=== PATIENT | male | born 1985 | race Caucasian/White ===

== ENCOUNTER 2017-08-05 06:38 | Inpatient (IN) | payer OTHER ==
[~2017-08-05] VITALS: Ht 188 cm; Wt 89.0 kg
[2017-08-05] VITALS (7 sets, daily range): BP systolic 107–126; BP diastolic 59–76
--- NOTE | 2017-08-05 06:50 | NUR ---
TO BED 6 A 32 YO MALE PT BIB FAMILY FROM HOME, PT C/O RLQ ABD PAIN X 2 DAYS. PATIENT IS AAOX4, VSS. NAD NOTED. BREATHING EVEN AND UNLABORED. SKIN WARM AND DRY. COMFORT MEASURES RENDERED.
[2017-08-05] MEDS ORDERED: ONDANSETRON HCL/PF 4 MG/2 ML VIAL ONE (07:10)
[2017-08-05] MEDS ORDERED: KETOROLAC TROMETHAMINE INJ 30 MG/ML VIAL ONE (07:10)
--- NOTE | 2017-08-05 07:10 | NUR ---
STARTED A SALINE LOCK ON THE LAC G18, BLOOD DRAWN AND SENT TO LAB.
--- NOTE | 2017-08-05 07:14 | NUR ---
MEDICATED PATIENT ORDERED BY DR KEATING.
[2017-08-05 07:21] LABS: BASOPHILS % (AUTO) 0.4 % (0.0-2.0); EOSINOPHILS # (AUTO) 0.1 /CMM (0.0-0.7); EOSINOPHILS % (AUTO) 1.1 % (0.0-6.0); HEMATOCRIT 42 % (39-51); HEMOGLOBIN 14.8 g/dL (13.5-17.5); LYMPHOCYTES # (AUTO) 1.4 /CMM (0.8-4.8); LYMPHOCYTES % (AUTO) 17.9 % (20.0-44.0); MEAN CORPUSCULAR HEMOGLOBIN 30 PG (26.0-33.0); MEAN CORPUSCULAR HGB CONC 35 g/dl (31.0-36.0); MEAN CORPUSCULAR VOLUME 87 fL (80-96); MONOCYTES # (AUTO) 0.5 /CMM (0.1-1.30); MONOCYTES % (AUTO) 6.6 % (2.0-12.0); NEUTROPHILS # (AUTO) 5.7 /CMM (1.8-8.9); PLATELET COUNT (AUTO) 150 /CMM (150-450); RDW COEFFICIENT OF VARIATION 12.4 (11.5-15.0); RED BLOOD CELL COUNT(AUTO) 4.86 MIL/uL (4.5-6.0); WHITE BLOOD COUNT (AUTO) 7.7 K/uL (4.3-11.0)
[2017-08-05] MEDS ORDERED: KETOROLAC TROMETHAMINE INJ 30 MG/ML VIAL IV ONE (07:30)
[2017-08-05] MEDS ORDERED: ONDANSETRON HCL/PF 4 MG/2 ML VIAL IVP ONE (07:30)
[2017-08-05] MEDS ORDERED: IV NS 0.9% 1,000 ML BAG IV ONE (07:30)
[2017-08-05 07:33] LABS: CREATININE 0.9 mg/dL (0.6-1.3); POTASSIUM 3.7 mmol/L (3.5-5.1)
[2017-08-05 07:36] LABS: APPEARANCE,URINE CLEAR (CLEAR); BILIRUBIN,URINE NEGATIVE (NEGATIVE); BLOOD, URINE NEGATIVE Ery/uL (NEGATIVE); COLOR,URINE YELLOW (YELLOW); KETONES,URINE NEGATIVE (NEGATIVE); LEUKOCYTE ESTERASE ,URINE NEGATIVE (NEGATIVE); NITRITE, URINE NEGATIVE (NEGATIVE); PROTEIN,URINE NEGATIVE (NEGATIVE); UGLUCOSE NEGATIVE (NEGATIVE); UROBILINOGEN,URINE 0.2 EU/dL (0.2)
[2017-08-05 07:42] LABS: ALBUMIN 4.2 g/dL (3.4-5.0); BILIRUBIN,DIRECT 0.2 mg/dL (0.0-0.2); BILIRUBIN,TOTAL 0.9 mg/dL (0.2-1.0); TOTAL PROTEIN, SERUM 7.1 g/dL (6.4-8.2)
--- NOTE | 2017-08-05 09:21 | NUR ---
[facility] PAGED [phone] DR COPELAND N DIELECTRIC MACHINE OPERATOR
--- NOTE | 2017-08-05 10:23 | NUR ---
MOTOR VEHICLE DISPATCHER RECEIVED PT. BY WHEEL CHAIR. PT. IS A&OX4. PT. IS IN MEDICALLY STABLE CONDITION. REPORT WAS GIVEN VIA PHONE BY LINA FROM EMERGENCY ROOM.
[2017-08-05] MEDS ORDERED: IV D5/0.45 NACL 1,000 ML IV PRN (10:52)
[2017-08-05] MEDS ORDERED: ZOLPIDEM TARTRATE 5 MG TABLET PO PRN (11:00)
[2017-08-05] MEDS ORDERED: MAG HYDROX/AL HYDROX/SIMETH 30 ML UDC PO PRN (11:00)
[2017-08-05] MEDS ORDERED: ACETAMINOPHEN 325 MG TABLET PO PRN (11:00)
[2017-08-05] MEDS ORDERED: Z GUARD REMEDY 2 OZ OINT TP PRN (11:00)
[2017-08-05] MEDS ORDERED: HYDROMORPHONE INJ 0.5 MG/0.5 ML SYRINGE IV PRN ×2 (11:30→15:30)
[2017-08-05] MEDS: ONDANSETRON HCL/PF 4 MG/2 ML VIAL IVP PRN (12:51)
--- NOTE | 2017-08-05 13:09 | NUR ---
RN NOTES PT. LEFT ROOM AND WAS TAKEN TO SURGERY. CHART WAS TAKEN WITH PATIENT.
[2017-08-05] MEDS ORDERED: BUPIVACAINE 0.25% 75 MG/30 ML VIAL ONE (13:23)
[2017-08-05] MEDS ORDERED: ATROPINE SULFATE 1 MG/10 ML DISP.SYRIN ONE (14:40)
[2017-08-05] MEDS ORDERED: LIDOCAINE 1%-EPI 1:100,000 20 ML VIAL ONE (14:48)
[2017-08-05] MEDS ORDERED: HYDROMORPHONE 1 MG/1 ML DISP.SYRIN ONE (15:16)
--- NOTE | 2017-08-05 16:00 | NUR ---
RN NOTES PT. RETURNED BACK TO SAME ROOM POST OP. PT. IS IN MEDICALLY STABLE CONDITION. RECEIVED REPORT FROM OR NURSE. POST OP ORDERS WERE FAXED TO PHARMACY.
--- NOTE | 2017-08-05 16:00 | NUR ---
RN NOTES POST LAPAROSCOPIC APPENDECTOMY, PT. HAS 3 LAP SITES, 2X BANDAGES AT UMBILICAL REGION AND 1 BANDAGE SUPRAPUBIC REGION, PT. HAS ENIO AT INCISION SITES PER OR NURSE REPORT.
[2017-08-05] MEDS: IV D5/0.45 NACL W/20 MEQ KCL 1L IV PRN ×2 (17:28)
[2017-08-05] MEDS: HYDROMORPHONE INJ 0.5 MG/0.5 ML SYRINGE IV PRN (20:00)
--- NOTE | 2017-08-05 20:00 | NUR ---
RN CLOSING NOTES PT. IN BED A&OX4. FAMILY IS AT BEDSIDE. BREATHING UNLABORED, AND EVENLY ON ROOM AIR. NO S/S OF ACUTE DISTRESS. IV FLUIDS RUNNING AT 75 ML/HR. PT. C/O ABDOMINAL PAIN, AND PAIN MEDICATION WAS GIVEN IVP. BED IS IN LOWEST, AND LOCKED POSITION, 2 SIDE RAILS UP, AND INSTRUCTED PT. TO USE CALL LIGHT FOR ASSISTANCE. ALL NEEDS MET. WILL ENDORSE REPORT TO NURSE.
--- NOTE | 2017-08-05 20:00 | NUR ---
MS/RN OPENING NOTES PATIENT IN BED, ALERT, ORIENTED X3, WITH FAMILY MEMBER AT BEDSIDE, ON PAIN MANAGEMENT MONITORING,WAS GIVEN PAIN MEDICATION BY AM RN , REPORTED NOT HAD BM FOR 2 DAYS, GAVE PRUNE JUICE AND MOM. WILL MONITOR FOR BM. AND ANY CONCERNS. CALL LIGHTS WITHIN REACH, PROVIDE ICE COLD WATER. STATED WANTS TO SLEEP AND GET SOME REST.
[2017-08-05] MEDS: MAGNESIUM HYDROXIDE 30 ML UDC PO PRN (20:47)
[2017-08-05] MEDS: CEFAZOLIN SODIUM 1 GM in IV SODIUM CHLORIDE 0.9% 50 ML IV SCH (20:47)
[2017-08-06] MEDS: HYDROCODONE/APAP 5/325MG 1 EACH TABLET PO PRN ×3 (01:28→13:11)
[2017-08-06] MEDS: ONDANSETRON HCL/PF 4 MG/2 ML VIAL IVP PRN (01:36)
[2017-08-06] MEDS: CEFAZOLIN SODIUM 1 GM in IV SODIUM CHLORIDE 0.9% 50 ML IV SCH ×2 (02:44→09:35)
[2017-08-06] MEDS: IV D5/0.45 NACL W/20 MEQ KCL 1L IV PRN ×2 (05:17)
[2017-08-06 06:38] VITALS: BP 111/64
[2017-08-06] MEDS: HYDROMORPHONE INJ 0.5 MG/0.5 ML SYRINGE IV PRN (06:42)
--- NOTE | 2017-08-06 06:57 | NUR ---
321-1 Patient able to sleep during the night, given norco 5-325 mg po and zofran for nausea, compalin of abdominal discomfort, gave as needed simethicone, MOM given due to report no bm, provided jovita juice, will monitor , bed in lock position, call lights within reach, will endorse to am rn for su. Patient alert, oriented, respirations even and unlabores, abdominal dressing dry and intact.
[2017-08-06 07:15] LABS: APPEARANCE,URINE CLEAR (CLEAR); BILIRUBIN,URINE NEGATIVE (NEGATIVE); BLOOD, URINE NEGATIVE Ery/uL (NEGATIVE); COLOR,URINE YELLOW (YELLOW); KETONES,URINE NEGATIVE (NEGATIVE); LEUKOCYTE ESTERASE ,URINE NEGATIVE (NEGATIVE); NITRITE, URINE NEGATIVE (NEGATIVE); PH,URINE 6.5 (5.0-8.0); PROTEIN,URINE NEGATIVE (NEGATIVE); UGLUCOSE NEGATIVE (NEGATIVE); UROBILINOGEN,URINE 0.2 EU/dL (0.2)
--- NOTE | 2017-08-06 07:20 | NUR ---
RN OPENING NOTES PT. IN BED A&OX4. FAMILY IS AT BEDSIDE. BREATHING UNLABORED, AND EVENLY ON ROOM AIR. NO S/S OF ACUTE DISTRESS. IV FLUIDS RUNNING AT 75 ML/HR. BED IS IN LOWEST, AND LOCKED POSITION, 2 SIDE RAILS UP, AND INSTRUCTED PT. TO USE CALL LIGHT FOR ASSISTANCE. ALL NEEDS MET. WILL CONTINUE TO ASSESS AND MONITOR.
[2017-08-06] MEDS ORDERED: PANTOPRAZOLE 40 MG TABLET.DR PO SCH (07:30)
[2017-08-06 07:31] LABS: BASOPHILS % (AUTO) 0.2 % (0.0-2.0); HEMATOCRIT 39 % (39-51); HEMOGLOBIN 13.8 g/dL (13.5-17.5); MEAN CORPUSCULAR HEMOGLOBIN 31 PG (26.0-33.0); MEAN CORPUSCULAR HGB CONC 35 g/dl (31.0-36.0); MEAN CORPUSCULAR VOLUME 87 fL (80-96); MONOCYTES # (AUTO) 0.5 /CMM (0.1-1.30); MONOCYTES % (AUTO) 5.7 % (2.0-12.0); NEUTROPHILS # (AUTO) 6.8 /CMM (1.8-8.9); NEUTROPHILS % (AUTO) 82.1 % (43.0-81.0); PLATELET COUNT (AUTO) 148 /CMM (150-450); RDW COEFFICIENT OF VARIATION 12.8 (11.5-15.0); RED BLOOD CELL COUNT(AUTO) 4.52 MIL/uL (4.5-6.0); WHITE BLOOD COUNT (AUTO) 8.3 K/uL (4.3-11.0)
[2017-08-06 07:47] LABS: INR 1.04 (0.87-1.13)
[2017-08-06 07:48] LABS: ALBUMIN 3.5 g/dL (3.4-5.0); BILIRUBIN,TOTAL 0.5 mg/dL (0.2-1.0); CALCIUM, SERUM 8.4 mg/dL (8.5-10.1); CREATININE 0.9 mg/dL (0.6-1.3); MAGNESIUM 1.9 mg/dL (1.8-2.4); PHOSPHORUS 3.5 mg/dL (2.5-4.9); POTASSIUM 3.7 mmol/L (3.5-5.1); TOTAL PROTEIN, SERUM 6.4 g/dL (6.4-8.2)
[2017-08-06 08:00] VITALS: BP 129/68
[2017-08-06 08:01] LABS: CREATINE KINASE MB 0.9 ng/mL (0-3.6)
[2017-08-06] MEDS: MAGNESIUM HYDROXIDE 30 ML UDC PO PRN (08:52)
[2017-08-06] MEDS ORDERED: LACTULOSE 10 G/15 ML UDC (PYXIS) PO PRN (11:00)
[2017-08-06] MEDS ORDERED: ONDA4TAB5 PO (11:57)
--- NOTE | 2017-08-06 15:05 | NUR ---
DIRECTOR CLINICAL OPERATIONS PT. WAS PROVIDED DISCHARGE INSTRUCTIONS WITH EDUCATION, AND PT. VERBALIZED UNDERSTANDING. DISCHARGE PAPERS WERE SIGNED. ID BAND, AND IV WAS REMOVED WITHOUT COMPLICATIONS. BELONGINGS LIST WAS CHECKED AND SIGNED. PICTURES WERE TAKEN AND PLACED IN CHART. PT. IS BEING PICKED UP BY PRIVATE CAR BY FAMILY. ALL QUESTIONS WERE ANSWERED.
--- NOTE | 2017-08-06 15:10 | NUR ---
ASSURANCE SENIOR MANAGER NOTE PT. WAS DISCHARGED IN MEDICALLY STABLE CONDITION.
== END 2017-08-06 15:00 | disposition home or self-care (01) | DRG 343 ==
LOC: ER 06:41 → MED 09:51
PROVIDERS: ADMIT Internal Medicine; ATTEND Internal Medicine
PROC: 0DTJ4ZZ Resection of Appendix, Percutaneous Endoscopic Approach (ICD-10-PCS; principal; 2017-08-05 14:28)
DX: K35.80 Unspecified acute appendicitis (principal); K59.00 Constipation, unspecified; Z88.2 Allergy status to sulfonamides
CPT/HCPCS: 36415; 71045-TC; 80048-TC; 80053-TC; 80061-TC; 80076-TC; 81000-TC; 82150-TC; 82553-TC; 83690-TC; 83735-TC; 84100-TC; 85025-TC; 85730-TC; 87081-TC; 87086-TC; 88304-TC; 88305-TC; 93307-TC; A4216; A4606; A6402; A6403; J0461; J0690; J1170; J1885; J2405; J3480; J3490; J7030; Z7610